=== PATIENT | male | born 2000 ===

== ENCOUNTER 2024-04-04 00:06 | Emergency (ER) | payer OTHER, SELFPAY ==
[2024-04-04] VITALS (16 sets, daily range): BP systolic 100–141; BP diastolic 53–88
[2024-04-04] MEDS: ADRENALIN 0.299999999999999989 MG IM (00:10)
[2024-04-04] MEDS: PEPCID 20 MG IV (00:13)
[2024-04-04] MEDS: DECADRON 10 MG IV (00:14)
[2024-04-04] MEDS: VAPONEFRIN NEBS 0.5 ML INH (00:16)
--- NOTE | 2024-04-04 00:18 | ED.GENMED ---
History of Present Illness
General
Chief Complaint: Allergic Reaction
Source: patient and spouse
Exam Limitations: none
Time Seen by Provider: 04/04/24 00:18
Nursing documentation reviewed up to this point in time: agreed with
History of Present Illness
History of Present Illness:
24-year-old male presents with acute anaphylactic reaction. Patient mistakenly ate peanut M&Ms with a known peanut allergy. He attempted to use an EpiPen but could not figure out how to inject himself. He initially called 911 but then called off
the ambulance stating that it was 'too expensive. Patient took Benadryl and was driven to the hospital. He states he vomited the Benadryl up. Patient felt that his throat was closing. Denies any other symptoms.
Review of Systems
Review of Systems
Allergies reviewed?: Yes
Other source history: family
All Other Systems: ROS reviewed and negative except as documented in HPI and ROS
Constitutional: Reports no symptoms
EENT: Reports no symptoms
Respiratory: Reports no symptoms
Cardiac: Reports no symptoms
ABD/GI: Reports no symptoms
: Reports no symptoms
Musculoskeletal: Reports no symptoms
Skin: Reports no symptoms
Neurological: Reports no symptoms
Endocrine: Reports no symptoms
Hematologic/Lymphatic: Reports no symptoms
Psychiatric: Reports anxiety
Phy Exam
General Physical Exam
General Presentation: severe distress
General age: appears older than age
General Skin: diaphoretic
General Habitus: normal
General Mental: alert and anxious
General Hydration: appears well hydrated
Cardiovascular Exam
Cardiovascular Exam: tachycardia
Neurological Exam
Neurological Exam: alert and oriented x3
Musculoskeletal Exam
Musculoskeletal Exam: full ROM
Skin Exam
Skin Exam: redness and warmth
Psychiatric Exam
Psychiatric Exam: anxious
Course
Orders/Labs/Results
Orders:
Orders
07/05/24 00:20
EPINEPHrine PF [Adrenalin] 0.3 mg IM NOW STA
04/04/24 00:21
Diphenhydramine [Benadryl] 50 mg IV NOW STA
Famotidine [Pepcid] 20 mg IV NOW STA
04/04/24 00:22
Dexamethasone Sod Phosphate [Decadron] 10 mg IV NOW STA
04/04/24 00:24
Racepinephrine [Vaponefrin Nebs] 0.5 ml INH R NOW STA
04/04/24 00:36
Ondansetron Injectable [Zofran] 4 mg .ROUTE .STK-MED ONE
04/04/24 00:40
Ondansetron Injectable [Zofran] 4 mg IV NOW STA
Vital Signs
Initial and Last Documented VS:
Initial Vital Signs
Pulse Resp
102 26
04/04/24 00:08 04/04/24 00:08
Last Documented Vital Signs
Temp Pulse Resp BP Pulse Ox
99 F 150 26 134/88 100
04/04/24 00:26 04/04/24 00:35 04/04/24 00:35 04/04/24 00:26 04/04/24 00:26
*Pulse Oximetry
Patient hypoxic: no
*Critical Care Note
Total Time (30-74mins, 75-104mins- exclusive of procedures): 45
comment:
Critical care statement: A total of 45 minutes of critical care time was provided for this patient. This time is separate from time utilized to perform the aforementioned documented procedures. Aggregate critical care time includes only time
during which I was engaged in work directly related to the patient's care, as described above, whether at the bedside or elsewhere in the Emergency Department.
Patient Management
Social determinants of health affecting care: Financial situation and Strong social support
Update Note
Update Note:
04/04/2024 0051 AM: Patient showing minimal improvement. Protecting airway.
ED Attending Note
-
Portions of this chart may have been created with voice recognition software.� Occasional wrong word or��sound alike� substitutions may have occurred due to the inherent limitations of voice recognition software.
Discharge Plan
Departure
Prescriptions:
No Action
No Current Medications
0
Referrals:
Babar Barajas IV, DO [Family Provider] -
Interventions
Interventions:
*Risk Screen - Suicide Last Done: 04/04/24 00:10
*General Assessment Last Done: 04/04/24 00:10
*Neglect/Abuse Screening Last Done: 04/04/24 00:10
*ED COVID-19 Vaccine History Last Done: 04/04/24 00:10
ED- Cardiac Assessment Last Done: 04/04/24 00:28
ED- Pulmonary Assessment Last Done: 04/04/24 00:28
ED-Skin Assessment Last Done: 04/04/24 00:28
Discharge Date and Time
Print Language: MONGOLIAN
[2024-04-04] MEDS: BENADRYL 50 MG IV (00:21)
[2024-04-04] MEDS: ZOFRAN 4 MG IV (00:40)
[2024-04-04] MEDS: BENADRYL 25 MG IV (01:23)
--- NOTE | 2024-04-04 05:37 | ED.GENMED ---
History of Present Illness
General
Chief Complaint: Allergic Reaction
Time Seen by Provider: 04/04/24 00:18
History of Present Illness
History of Present Illness:
24-year-old male that inadvertently ate peanuts tonight. He is allergic to them. Patient developed allergic symptoms. Had an EpiPen but could not use it. He did take Benadryl. He came into the emergency department. He states that he did not
call 911 because he did not 'want to wait '.
Phy Exam
Physical Exam
Physical Exam:
Physical Exam
Vital signs and allergy list reviewed and agreed with.
GENERAL: Alert , in moderate apparent distress
EYE: pupils equal, EOMI, anicteric
NECK: Supple, no significant adenopathy. No masses. Trachea midline
ENT: Oropharynx is clear, mmm. Hypoglossus
CARDIAC: Regular rate and rhythm . No M/R/G
LUNGS: Clear breath sounds bilaterally, no acute respiratory distress, no wheezes/rales/rhonchi
ABDOMEN: Soft, without focal tenderness, no r/g, no cvat. Normal BSx4q
NEUROLOGICAL: Alert and oriented, no focal neuro deficits
SKIN: Warm and dry, skin intact.
MUSCULOSKELETAL: No edema, well perfused. Moves all 4 extremities
PSYCH: Normal and appropriate interaction.
Course
Orders/Labs/Results
Orders:
Orders
04/04/24 00:20
EPINEPHrine PF [Adrenalin] 0.3 mg IM NOW STA
04/04/24 00:21
Diphenhydramine [Benadryl] 50 mg IV NOW STA
Famotidine [Pepcid] 20 mg IV NOW STA
04/04/24 00:22
Dexamethasone Sod Phosphate [Decadron] 10 mg IV NOW STA
04/04/24 00:24
Racepinephrine [Vaponefrin Nebs] 0.5 ml INH R NOW STA
04/04/24 00:36
Ondansetron Injectable [Zofran] 4 mg .ROUTE .STK-MED ONE
04/04/24 00:40
Ondansetron Injectable [Zofran] 4 mg IV NOW STA
04/04/24 01:16
Diphenhydramine [Benadryl] 25 mg IV NOW STA
Vital Signs
Initial and Last Documented VS:
Initial Vital Signs
Pulse Resp
102 26
04/04/24 00:08 04/04/24 00:08
Last Documented Vital Signs
Temp Pulse Resp BP Pulse Ox
99 F 66 14 109/65 98
04/04/24 00:26 04/04/24 05:30 04/04/24 05:30 04/04/24 05:30 04/04/24 05:00
*Critical Care Note
Total Time (30-74mins, 75-104mins- exclusive of procedures): 35 (Critical care statement: A total of 35 minutes of critical care time was provided for this patient. This time is separate from time utilized to perform the aforementioned documented
procedures. Aggregate critical care time includes only time during which I was engaged in work directl)
Update Note
Update Note:
04/04/2024 0537 AM: Patient is resting comfortably. He states that he is feeling much better. Denies any difficulty swallowing. He has absolutely no respiratory complaints. On repeat physical exam he is resting comfortably no acute distress.
Patient does not wish to stay in the hospital continued observation. Patient to be discharged home.
ED Attending Note
-
Portions of this chart may have been created with voice recognition software.� Occasional wrong word or��sound alike� substitutions may have occurred due to the inherent limitations of voice recognition software.
Discharge Plan
Departure
Patient Disposition: Home (Routine Discharge)
Date of Disposition: 04/04/24
Time of Disposition: 05:39
Patient with high blood pressure during this ER visit?: Yes
Discharge Problem:
Anaphylaxis, Peanut allergy
Instructions: Peanut, tree nut, and seed allergy, Anaphylaxis - Discharge instructions, BLOOD PRESSURE
Prescriptions:
New
diphenhydramine HCl [Benadryl] 25 mg capsule
25 mg PO TID PRN (Reason: allergy symptoms) Qty: 14 0RF
epinephrine [EpiPen] 0.3 mg/0.3 mL Auto-Injector
0.3 mg IM .STAT PRN (Reason: anaphylaxis) Qty: 1 0RF
prednisone 50 mg Tablet
50 mg PO DAILY Qty: 5 0RF
Referrals:
Babar Barajas IV DO [Family Provider] -
Activity Restrictions/Additional Instructions:
It was a pleasure meeting you and taking part in your care. We hope for your continued healing and wellness.
Please read discharge instructions in their entirety. However, they are for general education and may not describe your exact diagnosis at discharge. Information on your ER visit and medical conditions were discussed with you along with appropriate
follow up information...
If indicated, please take your medications as instructed and indicated on discharge paperwork.
Please schedule a follow up appointment as directed. Call to schedule an appointment
Please return to the emergency department with ANY change in, persisting, or worsening of symptoms. If any of your symptoms do not improve, or persist, or become more severe within 6-12 hours, please return to the emergency department for further
care.
Please return to the emergency department if you develop a headache, neck pain/stiffness, fever greater than 100.4F, chest pain, shortness of breath, persistent nausea, vomiting, slurred speech, difficulty walking, numbness/tingling, weakness, signs
of infection or any other symptoms that are worrisome to you.
If you have any questions or concerns please do not hesitate to call the Hospital at or E-mail me directly at
Interventions
Interventions:
*Risk Screen - Suicide Last Done: 04/04/24 00:10
*General Assessment Last Done: 04/04/24 00:10
*Neglect/Abuse Screening Last Done: 04/04/24 00:10
*ED COVID-19 Vaccine History Last Done: 04/04/24 00:10
*Nursing Disposition Last Done: 04/04/24 06:03
ED- Cardiac Assessment Last Done: 04/04/24 00:28
ED- Pulmonary Assessment Last Done: 04/04/24 00:28
ED-Skin Assessment Last Done: 04/04/24 00:28
Discharge Date and Time
Discharge Date/Time: 04/04/24 06:03
Print Language: AMHARIC
== END 2024-04-04 06:03 | disposition home or self-care (01) ==
LOC: EMR 00:06
PROVIDERS: EMERGENCY PHYSICIAN Student in an Organized Health Care Education/Training Program; FAMILY PHYSICIAN Family Medicine
DX: T78.01XA Anaphylactic reaction due to peanuts, initial encounter (principal); X58.XXXA Exposure to other specified factors, initial encounter; R03.0 Elevated blood-pressure reading, without diagnosis of hypertension
CPT/HCPCS: 99291; 96374; 96375 ×3; 94640; 96376; 96372

== ENCOUNTER → 2025-01-05 08:20 | Outpatient (REF) | payer OTHER, SELFPAY | LOC: PAVMRI 08:20 | PROVIDERS: ATTENDING PHYSICIAN Internal Medicine Cardiovascular Disease; FAMILY PHYSICIAN Family Medicine | DX: Q22.5 Ebstein's anomaly (principal); Q98.4 Klinefelter syndrome, unspecified | CPT/HCPCS: 75561; A9585 ==